=== PATIENT | male | born 1940 | race Caucasian/White ===

== ENCOUNTER 2018-11-11 15:11 | Emergency (ER) | payer MEDICARE, OTHER ==
--- NOTE | 2018-11-11 15:56 | ED Physician Documentation ---
PD HPI LOWER EXT INJURY - Stated complaint Stated Complaint: GLF/RIGHT HIP PAIN - Chief complaint Chief Complaint: Trauma Ext - History obtained from History obtained from: Patient - History of Present Illness PD HPI LOW EXT INJURY LOCATION: Right, Buttock Type of injury: Fall Where injury occurred: Home Timing - onset: Enter time (1000), Yesterday Timing - duration: Days (1) Timing - details: Abrupt onset, Still present Improved by: Rest, Immobilization Worsened by: Moving, Palpating Associated symptoms: No: Weakness, Numbness, Tingling, Swelling Contributing factors: Prior ortho surgery (lumbar surgery and hip surgery). No: Anticoagulated Similar symptoms before: Has not had sx before Recently seen: Not recently seen - Additional information Additional information: 77-year-old male with a prior history of left hip replacement and lumbar surgery has had a fall in his shower and he is injured the right lower lumbar back area. He has pain with any movement he is able to bear weight on his hip. Review of Systems Constitutional: denies: Fever Eyes: denies: Decreased vision Ears: denies: Ear pain Nose: denies: Congestion Respiratory: denies: Cough GI: denies: Vomiting PD PAST MEDICAL HISTORY - Present Medications Home Medications: Ambulatory Orders Medication Instructions Recorded Confirmed Hydrocodone/Acetaminophen 1 - 2 each PO Q6H PRN #14 tablet 11/11/18 [Hydrocodon-Acetaminophen 5-325] - Allergies Allergies/Adverse Reactions: Allergies Allergy/AdvReac Type Severity Reaction Status Date / Time fluticasone [From Flonase] Allergy Dizziness Verified 11/11/18 15:17 PD ED PE NORMAL - Vitals Vital signs reviewed: Yes (normal ) - General General: Alert and oriented X 3, No acute distress, Well developed/nourished - HEENT HEENT: Atraumatic, PERRL - Neck Neck: Supple, no meningeal sign, No bony TTP - Respiratory Respiratory: No respiratory distress - Back Back: No CVA TTP, No spinal TTP, Other (There is pain to the lower lumbar paraspinous area on the right side there is no bruising noted. There is no tenderness over the trochanter on the right side and the ROM is normal. ) - Derm Derm: Normal color, Warm and dry, No rash - Extremities Extremities: No deformity, No edema - Neuro Neuro: Alert and oriented X 3, mechanical unit repairer 2-12 intact, No motor deficit, No sensory deficit, Normal speech Eye Opening: Spontaneous Motor: Obeys Commands Verbal: Oriented GCS Score: 15 - Psych Psych: Normal mood, Normal affect Results - Vitals Vitals: Vital Signs - 24 hr 11/11/18 15:17 Temperature 36.5 C Heart Rate 63 Respiratory 14 Rate O2 Saturation 99 Oxygen O2 Source Room air - Rads (name of study) lumbar spine Radiology: Prelim report reviewed (Impression: 1. Mild to moderate degenerative disc disease at L5-S1. Degenerative disease at L3-L4. 2 No fracture or listhesis.), EMP read indepedently, See rad report PD MEDICAL DECISION MAKING - ED course Complexity details: reviewed results, re-evaluated patient, considered differential, d/w patient ED course: 69-year-old male who is fallen in the shower has contused his lower lumbar area he does not have any evidence of a fracture on plain film of the lumbar spine. We will give him a short course of narcotic for pain control. Departure - Departure Disposition: 01 Home, Self Care Clinical Impression: Lumbar contusion Qualifiers: Encounter type: initial encounter Qualified Code(s): S30.0XXA - Contusion of lower back and pelvis, initial encounter Condition: Stable Instructions: ED Contusion Back Follow-Up: Your, doctor [Other] Prescriptions: Hydrocodone/Acetaminophen [Hydrocodon-Acetaminophen 5-325] 1 - 2 each PO Q6H PRN #14 tablet PRN Reason: pain Discharge Date/Time: 11/11/18 16:43
--- NOTE | 2018-11-11 16:45 | XRAY Report ---
Reason: fall pain to lower lumbar on right Procedure Date: 11/11/2018 Accession Number: [id number] / [id number] Procedure: XR - Lumbar Spine 2 View CPT Code: FULL RESULT: EXAM: LUMBOSACRAL SPINE RADIOGRAPHY EXAM DATE: 11/11/2018 04:18 PM. CLINICAL HISTORY: Fall pain to lower lumbar on right. COMPARISONS: None. TECHNIQUE: 2 views. FINDINGS: Alignment: Normal. No spondylolisthesis or scoliosis. Bones: Five [id number] lumbar vertebral bodies are present. No fractures or bone lesions. Disks: Mild to moderate degenerative disease at L5-S1. Degenerative disease at L3-L4. Facets: No degenerative changes. Sacroiliac Joints: Unremarkable. Soft Tissues: Normal. The visualized bowel gas pattern is normal. IMPRESSION: 1. Mild to moderate degenerative disease at L5-S1. Degenerative disease at L3-L4. 2. No fracture or listhesis. [facility]
== END 2018-11-11 16:43 | disposition home or self-care (01) ==
LOC: ED 15:11
DX: S30.0XXA Contusion of lower back and pelvis, initial encounter (principal); W01.0XXA Fall on same level from slipping, tripping and stumbling without subsequent striking against object, initial encounter; Y93.E1 Activity, personal bathing and showering; Y92.002 Bathroom of unspecified non-institutional (private) residence as the place of occurrence of the external cause
CPT/HCPCS: 72100; 99283; 99284